=== PATIENT | female | born 1965 | race Caucasian/White ===

== ENCOUNTER 2018-07-05 10:56 | Emergency (ER) | payer OTHER ==
[~2018-07-05] VITALS: Ht 165.1 cm; Wt 74.2 kg
[2018-07-05 11:07] VITALS: Ht 165.1 cm; Wt 74.2 kg
--- NOTE | 2018-07-05 12:24 | ERD ---
ER Documentation Chief Complaint Chief Complaint lt breast pain x 2 weeks HPI 53-year-old female, presents to the emergency department, complaining of left breast pain for 2 weeks, located in the upper external quadrant, the pain is dull, constant, worsened by deep palpation, no masses noticed, no skin changes. The patient denies recent history of trauma, no personal or family history of breast cancer. ROS All systems reviewed and are negative except as per history of present illness. Medications Home Meds Active Scripts Acetaminophen* (Tylenol*) 325 Mg Tablet, 2 TAB PO Q6 PRN for PAIN AND OR ELEVATED TEMP, #20 TAB Prov:DENYS AGUILERA MD 07/05/18 Ibuprofen* (Motrin*) 400 Mg Tab, 400 MG PO Q6H PRN for PAIN AND OR ELEVATED TEMP, #20 TAB Prov:DENYS AGUILERA MD 07/05/18 PMhx/Soc The patient denies personal/family history of breast or ovarian cancer Medical and Surgical Hx: pt denies Medical Hx, pt denies Surgical Hx Smoking Status: Never smoker FmHx Family History: diabetes Physical Exam Vitals Vital Signs Date Temp Pulse Resp B/P (MAP) Pulse Ox O2 O2 Flow FiO2 Time Delivery Rate 07/05/18 98.1 73 18 138/64 98 11:07 (88) Physical Exam Const: No acute distress Head: Atraumatic Eyes: Normal Conjunctiva ENT: Normal External Ears, Nose and Mouth. Neck: Full range of motion. No meningismus. Resp: Clear to auscultation bilaterally Breast: Normal inspection, symmetrical, no skin changes, no masses, no nipple discharge, mild tenderness to palpation in the left upper quadrant. Cardio: Regular rate and rhythm, no murmurs Abd: Soft, non tender, non distended. Normal bowel sounds Skin: No petechiae or rashes Back: No midline or flank tenderness Ext: No cyanosis, or edema Neur: Awake and alert Psych: Normal Mood and Affect Results 24 hrs Patient: DANIELLE ESTEVEZ : 1965 Age: 53 Sex: F MR #: [id number] DOS: 07/05/18 1256 Ordering MD: DENYS AGUILERA MD Location: [facility] Room/Bed: PROCEDURE: Ultrasound of the left breast CLINICAL INDICATION: Pain. TECHNIQUE: Real time ultrasound examination survey of the left breast was performed. COMPARISON: None. FINDINGS: No focal mass or lesion is identified. There is no abnormal vascularity. No grossly dilated ducts are identified. IMPRESSION: Negative limited ultrasound examination of the left breast. Procedures/MDM Vital signs stable. Differential diagnosis considered include hematoma, mastitis, lipoma, cyst, fibroglandular changes of the breast. Low suspicion for malignancy. During the ED course the patient remained stable, no new complaints. Results and clinical impression discussed with the patient who agrees with management. The patient is stable to be treated outpatient and will be discharged home with a Rx for ibuprofen and acetaminophen, some side effects of prescribed medications (headache, rash, nausea, vomiting, diarrhea, bleeding, hypertension, interactions with other medications) were reviewed. Follow up with the primary care provider in the next 48h has been recommended. If symptoms persist, worsen or new symptoms develop, then patient should return to the ED immediately. Instructions explained and given directly by me to the patient with acknowledgment and demonstrated understanding. Disclaimer: Inadvertent spelling and grammatical errors are likely due to EHR/dictation software use and do not reflect on the overall quality of patient care. Also, please note that the electronic time recorded on this note does not necessarily reflect the actual time of the patient encounter. Departure Diagnosis: Primary Impression: Mastalgia in female Condition: Stable Additional Instructions: Muchas veda por [facility] para will servicio. Esperamos que en will visita a la heidi de emergencia will problema medico haya sido solucionado y que se sienta mucho mejor. Para estar seguros que will mejoria sigue en proceso, le pedimos el favor de hacer cris ang de seguimiento medico con will doctor primario en los proximos 2-4 [place]. Lleve con usted estos documentos y las medicinas recetadas. Si fany sintomas empeoran, NO SE ESPERE, por favor regrese a heidi de emergencia INMEDIATAMENTE. En rosa que usted no tenga un mdico de atencin primaria: Llame al mdico o clnica comunitaria de referencia que aparece abajo lore las horas de consultorio para hacer cris ang para que le vean. CLINICAS: [facility] [phone] [facility] [phone] [place] [phone] [facility] [phone] [place] [phone] [facility]. [phone] DENYS CORTES MD July 05, 2018 12:24
[2018-07-05] MEDS ORDERED: IBUP-1561 PO (13:56)
[2018-07-05] MEDS ORDERED: ACET325T33 PO (13:56)
== END 2018-07-05 14:04 | disposition home or self-care (01) ==
LOC: FTE 10:56
DX: N64.4 Mastodynia (principal)
CPT/HCPCS: 76642; Z7502